=== PATIENT | male | born 1955 | race Caucasian/White ===

== ENCOUNTER 2017-03-18 11:02 | Emergency (ER) | payer BC, OTHER ==
[~2017-03-18] VITALS: Ht 172.7 cm; Wt 76.0 kg
[2017-03-18 12:02] VITALS: BP 166/107
== END 2017-03-18 13:38 | disposition home or self-care (01) ==
LOC: ER 12:18
DX: K64.4 Residual hemorrhoidal skin tags (principal); I10 Essential (primary) hypertension; F17.210 Nicotine dependence, cigarettes, uncomplicated; Z98.890 Other specified postprocedural states
CPT/HCPCS: 99283